=== PATIENT | male | born 1940 | race Caucasian/White ===

== ENCOUNTER 2016-10-20 23:57 | Emergency (ER) | payer MEDICARE ==
[~2016-10-20] VITALS: Ht 175.3 cm; Wt 88.6 kg
[~2016-10-20 23:57] MED LIST: ALBU8.5H4 IH; CHOL200020 PO; CYAN200014 PO; Co Q-10; FLUT12AE8 IH; METO25TA99 PO; MULT1TAB70 PO; SALM50DI IH; SIMV40TA5 PO
[2016-10-20 23:59] VITALS: BP 157/92; RESP 16; O2SAT 92
--- NOTE | 2016-10-21 00:17 | ED.REPORT ---
HPI-General Illness Date of Service Oct 21, 2016 ED Provider: Choco Rojas DO Pt is a 76 year old male with a history of HTN, COPD, seasonal allergies, and hyperlipidemia who presents to the ED complaining of nose bleeding throughout today. He denies any other symptoms. The pt reports that he has been experiencing intermittent nose-bleeding since 04/03/16 and presented to his primary care provider 2 days ago. He has not seen an ENT specialist for his symptoms yet. Per pt, his last blood work was in 08/15. Nursing Notes Stated Complaint: NOSE BLEED Chief Complaint: ENT & Mouth Nursing Notes Reviewed: Yes Allergies: Coded Allergies: colchicine (Verified Allergy, Unknown, 08/10/13) Scheduled Cholecalciferol (Vitamin D3) (Vitamin D-3) 2,000 Unit Capsule 2,000 UNIT PO DAILY Cyanocobalamin (Vitamin B-12) (Vitamin B-12) 2,000 Mcg Tablet.er Unknown Dose PO DAILY Fluticasone Propionate (Flovent HFA 110 mcg) 12 Gm Aer.w.adap 2 PUFFS IH BID Metoprolol Succinate ER (Metoprolol Succinate ER) 25 Mg Tab.er.24h 25 MG PO DAILY Multivitamin (Multivitamins) 1 Each Tablet 1 EACH PO DAILY Salmeterol Xinafoate (Serevent Diskus) 50 Mcg/Puff Inhaler 1 PUFF IH BID Simvastatin (Simvastatin) 40 Mg Tablet 40 MG PO HS Scheduled PRN Albuterol HFA (Albuterol HFA) 8.5 Gm Hfa.aer.ad 1 PUFF IH Q4 PRN PRN For Shortness of Breath Miscellaneous Medications ([Co Q-10]) General Time Seen by MD: 00:16 Chief Complaint Other (Nose bleeding) Hx Obtained From: Patient Arrived By: Walk-in Sudden in Onset?: No Onset Occurred: More than a week ago... (6 months) Symptom Duration: Intermittent Severity: Current: No pain currently Severity: Maximum: No pain Recent Healthcare: Recent doctor visit Similar Sx Previous: Yes Past Medical History Past Medical History Spine arthritis Sleep apnea Reports: COPD, Hyperlipidemia, Hypertension Past Surgical History Denies Smoking History Unknown if Ever Smoker Social History Alcohol Use: "Social" Drug Use: Denies drug use Ambulatory Status Independent Review of Systems Full Review of Systems Constitutional: Denies: Fever Ears / Nose / Throat: Reports: Nose bleeding Respiratory: Denies: Non-productive cough, Shortness of breath Complete sys rev & neg: except as marked. Physical Exam Vital Signs Vital Signs Date Time Temp Pulse Resp B/P Pulse Ox O2 Delivery O2 Flow Rate FiO2 10/21/16 01:45 36.8 94 16 158/93 94 Room Air 10/20/16 23:59 36.8 99 16 157/92 92 Room Air Initial VS: Reviewed Head / Eyes: Atraumatic, Normocephalic Neck: Supple, Full range of motion Respiratory: Breath sounds normal, Clear to auscultation, No respiratory distress Abdomen / GI: Soft, Non-tender Extremities: Vascular intact, Neuro intact Skin: Warm, Dry, No cyanosis Neurologic: Alert, Oriented, Nonfocal Psychiatric: Mood/affect normal, Behavior normal General/Constitutional: Awake, Alert, Cooperative ENT: Atraumatic, Airway patent No active bleeding; no pharangeal bleeding. Couldn't see where he was bleeding from. Interpretation & Diagnostics Lab Results Interpretation Result Diagram: 10/21/16 0050 10/21/16 0050 Test 10/21/16 00:50 White Blood Count 7.0th/mm3 (3.8-10.1) Red Blood Count 5.01mil/mm3 (4.40-5.80) Hemoglobin 16.1g/dL (13.8-17.2) Hematocrit 48.0% (41.0-50.0) Mean Corpuscular Volume 95.8fL (81-100) Mean Corpuscular Hemoglobin 32.1pg (27.0-35.0) Mean Corpuscular Hemoglobin Concent 33.5% (32.0-37.0) Red Cell Distribution Width 12.7% (12.3-15.4) Platelet Count 164bil/L (150-400) Neutrophils (%) (Auto) 48.8% (40-74) Lymphocytes (%) (Auto) 33.5% (14-46) Monocytes (%) (Auto) 14.5% (4-12) Eosinophils (%) (Auto) 2.6% (0-5) Basophils (%) (Auto) 0.3% (0-3) Prothrombin Time 10.2sec (8.1-12.5) Prothromb Time International Ratio 0.95ratio Sodium Level 135mEq/L (134-144) Potassium Level 4.2mEq/L (3.5-5.2) Chloride Level 94mEq/L (97-108) Carbon Dioxide Level 27mmol/L (18-29) Blood Urea Nitrogen 14mg/dL (8-27) Creatinine 0.62mg/dL (0.76-1.27) Estimat Glomerular Filtration Rate 135mL/min (>59) Glucose Level 110mg/dL (60-99) Calcium Level 9.5mg/dL (8.5-10.1) Total Bilirubin 0.6mg/dL (0.0-1.2) Aspartate Amino Transf (AST/SGOT) 20U/L (0-50) Alanine Aminotransferase (ALT/SGPT) 19U/L (0-44) Alkaline Phosphatase 97U/L (25-160) Total Protein 7.1g/dL (6.4-8.4) Albumin 4.2g/dL (3.4-5.0) Hold [place] Top Tube Received (Received) Re-Eval/Medical Decision Source of Hx: Old records Time of Eval: 01:34 Re-Evaluation/Progress Note: Pt rechecked. Informed pt of plan for discharge. Pt understands and agrees with plan for discharge. F/U instructions and RTER warnings given. All questions addressed. Counseled Regarding: Diagnosis, Lab results, Need for follow-up, When/why to return to ED Discharge & Departure Primary Impression: Epistaxis Disposition: Home Discharge Condition All VS Reviewed: Yes Condition: Stable Patient Instructions: Nosebleed (ED) Additional Instructions: The laboratory work was reassuring. I recommended that you get evaluated by an ear nose and throat surgeon. This should happen by Saturday. Keep the packing in until then. Call the referral ear nose and throat surgeons office on Saturday to schedule a follow-up. If you have any difficulties getting into the office, please come back here and we will remove the packing. Either way I think in the long run having ENT evaluation is important. You should also set up a follow-up with primary care physician. Take Keflex twice daily while the packing is in. Return if any problems or any new or worsening symptoms. Return if any further bleeding. Referrals: Garrett Lyon MD (PCP) Abdirahman Lee MDibprincess Attestation Portions of this note were transcribed by Ruba Myers. I, Dr. Rojas personally performed the history, physical exam and medical decision-making; I reviewed and confirmed the accuracy of the information in the transcribed note. Signed by : Stefano Johnson, 10/21/16 and 01:50. copies to: Garrett Lyon MD; Abdirahman Lee MD, Todd P DO Oct 21, 2016 00:17 Ruba Garay Oct 21, 2016 00:24
[2016-10-21 01:05] LABS: BASOPHILS % (AUTO) 0.3 % (0-3); EOSINOPHILS % (AUTO) 2.6 % (0-5); MONOCYTES % (AUTO) 14.5 % (4-12); Mean Corpuscular Hemoglobin 32.1 pg (27.0-35.0); Mean Corpuscular Volume 95.8 fL (81-100); NEUTROPHILS % (AUTO) 48.8 % (40-74); Platelet Count 164 bil/L (150-400)
[2016-10-21 01:22] LABS: INR 0.95 ratio
[2016-10-21 01:45] VITALS: BP 158/93; PULSE 94; RESP 16; O2SAT 94
== END 2016-10-21 01:46 | disposition home or self-care (01) ==
LOC: SED 23:57
DX: R04.0 Epistaxis (principal); I10 Essential (primary) hypertension; E78.5 Hyperlipidemia, unspecified; J44.9 Chronic obstructive pulmonary disease, unspecified; J30.2 Other seasonal allergic rhinitis; Z88.8 Allergy status to other drugs, medicaments and biological substances

== ENCOUNTER 2016-10-21 14:47 | Emergency (ER) | payer MEDICARE ==
[~2016-10-21] VITALS: Ht 175.3 cm; Wt 88.6 kg
[2016-10-21 14:51] VITALS: BP 153/95; PULSE 91; RESP 20; O2SAT 93
--- NOTE | 2016-10-21 15:03 | ED.REPORT ---
HPI-Facial Injury Date of Service Oct 21, 2016 ED Provider: History of Present Illness: 76-year-old male here for epistaxis area he was seen yesterday and had a nasal packing placed into his right Nare. Bleeding was controlled until this morning when he noticed dripping out of his right Nare. He continues to drip throughout the day. It is not coming out of the left side. Sometimes dripping down his posterior pharynx. Is taking his Keflex, not on any blood thinners. no known injury Nursing Notes Stated Complaint: NOSE BLEED Chief Complaint: General Complaint Nursing Notes Reviewed: Yes Allergies: Coded Allergies: colchicine (Verified Allergy, Unknown, 08/10/13) Scheduled Cholecalciferol (Vitamin D3) (Vitamin D-3) 2,000 Unit Capsule 2,000 UNIT PO DAILY Cyanocobalamin (Vitamin B-12) (Vitamin B-12) 2,000 Mcg Tablet.er Unknown Dose PO DAILY Fluticasone Propionate (Flovent HFA 110 mcg) 12 Gm Aer.w.adap 2 PUFFS IH BID Metoprolol Succinate ER (Metoprolol Succinate ER) 25 Mg Tab.er.24h 25 MG PO DAILY Multivitamin (Multivitamins) 1 Each Tablet 1 EACH PO DAILY Salmeterol Xinafoate (Serevent Diskus) 50 Mcg/Puff Inhaler 1 PUFF IH BID Simvastatin (Simvastatin) 40 Mg Tablet 40 MG PO HS Scheduled PRN Albuterol HFA (Albuterol HFA) 8.5 Gm Hfa.aer.ad 1 PUFF IH Q4 PRN PRN For Shortness of Breath Miscellaneous Medications ([Co Q-10]) General Time Seen by Provider: 14:57 Chief Complaint Bleeding Hx Obtained From: Patient Arrived By: Walk-in Onset Occurred: 1 day ago Symptom Duration: Intermittent Location: : Nose Severity: Current: No pain currently Similar Sx Previous: Yes Past Medical History Past Medical History Spine arthritis Sleep apnea Reports: COPD, Hyperlipidemia, Hypertension Past Surgical History Denies Smoking History Unknown if Ever Smoker Social History Alcohol Use: "Social" Drug Use: Denies drug use Ambulatory Status Independent Review of Systems Review of Systems Note: epistaxis Constitutional: Denies: Fever Physical Exam Initial Vital Signs Vital Signs (First) Date Time Temp Pulse Resp B/P Pulse Ox O2 Delivery O2 Flow Rate FiO2 10/21/16 14:51 36.2 91 20 153/95 93 Room Air Initial VS: Reviewed, Vital signs normal General/Constitutional: Well-developed, Well-nourished Respiratory: Breath sounds normal, Clear to auscultation, No respiratory distress Cardiovascular: Regular rate & rhythm, Heart sounds normal, Intact distal pulses Skin: Warm, Dry, No cyanosis Psychiatric: Mood/affect normal, Behavior normal, Normal thought content ENT: Atraumatic, Airway patent, Mucous membranes moist, Pharynx NL, No sinus tenderness, No facial swelling, Gums/dentition NL Nasal packing in place and saturated. Small amount of blood dripping around packing. Re-Eval/Medical Decision Med Decision/Clinical Course Med Decision/Clinical Course: Dr. Oshea at bedside discussing epistastix. We will leave nasal packing in place. He will follow up tomorrow with his PCP as scheduled and with ENT as soon as possible. Attending note: I saw and examined this patient with our nurse practitioner. This patient has no active bleeding. Extensive time spent with education and reassurance. Close follow-up and return precautions given Discharge & Departure Departure Notes Procedures: Results discussed Response to Therapy: Unchanged Impression: Primary Impression: Epistaxis Disposition: Home Discharge Condition All VS Reviewed: Yes Condition: Stable Patient Instructions: Nosebleed (GEN) Additional Instructions: Leave packing in place. Follow-up with your PCP tomorrow as planned. Call ENT first thing in the morning. you should be seen Saturday or Saturday of this week for removal of packing. Referrals: Garrett Lyon MD (PCP) Abdirahman Lee MD Attending Statement I have seen and examined the patient. I have reviewed the chart and agree with the documentation as recorded by the Midlevel Provider, including assessment, treatment plan, and disposition. Findings from my exam are included in documentation above. copies to: Abdirahman Lee MD, Linnea K ARNP Oct 21, 2016 15:03 Ran Oshea DO Oct 21, 2016 16:00
[2016-10-21 15:54] VITALS: BP 139/89; PULSE 92; RESP 20; O2SAT 93
== END 2016-10-21 15:45 | disposition home or self-care (01) ==
LOC: SED 14:47
DX: R04.0 Epistaxis (principal); J44.9 Chronic obstructive pulmonary disease, unspecified; E78.5 Hyperlipidemia, unspecified; I10 Essential (primary) hypertension; Z88.8 Allergy status to other drugs, medicaments and biological substances